=== PATIENT | female | born 1965 | race Caucasian/White ===

== ENCOUNTER 2019-09-10 18:14 | Emergency (ER) | payer SELFPAY ==
[~2019-09-10] VITALS: Ht 167.6 cm; Wt 108.9 kg
[~2019-09-10 18:14] MED LIST: ALBU90OI; ALBU90OI6; ALBU90OI61 INH; AMIT50; CLON2; CODACE30; FERGLU300; FILG480I; FLUSAL2505; FLUSAL2505 IH; HYDHCL25; HYDPAM50; MULVITMIND; Mobic15 MG; OXYACE5T; OXYACE5T PO; PANT40; PIRO20; QNASL8.7 GM; RANI150; RANI150 PO; ROPI1 PO; ROPI2; SENNP; TOPI100; VERA240ER; VERA240ERB PO; ZESTORETIC 20-251 EA; ZOLP10; [UNRECOGNIZED DRUG - OTHER]; [UNRECOGNIZED DRUG - OTHER]
== END 2019-09-10 21:25 | disposition home or self-care (01) ==
LOC: ER 18:14
DX: S20.212A Contusion of left front wall of thorax, initial encounter (principal); S20.211A Contusion of right front wall of thorax, initial encounter; R20.2 Paresthesia of skin; I10 Essential (primary) hypertension; Z88.5 Allergy status to narcotic agent; Z79.899 Other long term (current) drug therapy; Z87.891 Personal history of nicotine dependence; V29.9XXA Motorcycle rider (driver) (passenger) injured in unspecified traffic accident, initial encounter
CPT/HCPCS: 71046; 99284-25

== ENCOUNTER → 2019-11-27 | Outpatient (CLI) | payer OTHER | LOC: LAB SHORT 08:28 → LAB 08:28 | DX: L82.1 Other seborrheic keratosis (principal) | CPT/HCPCS: 88305 ==